=== PATIENT | female | born 1945 | race Caucasian/White ===

== ENCOUNTER 2024-10-27 14:18 | Inpatient (IN) | payer MEDICARE, OTHER ==
[2024-10-24 11:13] LABS: MEAN PLATELET VOLUME 7.9 FL (7.4-10.4); RED CELL DISTRIBUTION WIDTH 15.2 % (11.5-14.5)
[2024-10-24 11:26] LABS: APTT 23 SECONDS (22-32); INR 1.0 INR
[2024-10-24 11:28] LABS: CHOL/HDL RATIO 2.1 (0.00-4.99); CREATININE 1.14 MG/DL (0.40-0.90); LDL CHOLESTEROL 97 MG/DL (50-100); TOTAL CARBON DIOXIDE 26.5 MMOL/L (24-32); eGFR 46 ML/MIN
[~2024-10-27] VITALS: Ht 163.8 cm; Wt 49.1 kg
[2024-10-27] VITALS (12 sets, daily range): BP systolic 96–150; BP diastolic 46–78; PULSE 78–102; RESP 15–21; TEMP 97.7–98.5; O2SAT 15–96
[2024-10-27] MEDS ORDERED: LISI20TA28 PO (14:52)
[2024-10-27] MEDS ORDERED: BUDE3CAP11 PO (14:52)
[2024-10-27] MEDS ORDERED: CLOP75TA34 PO (14:52)
[2024-10-27] MEDS ORDERED: ATOR40TA72 PO (14:52)
[2024-10-27] MEDS ORDERED: ASPI-1265 PO (14:56)
--- NOTE | 2024-10-27 15:44 | ELECTROCARDIOGRAPH REPORT ---
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 PAULIE Osorio Measurements Intervals [place] Rate: 85 P: 73 NE: 201 QRS: 97 QRSD: 125 T: 37 QT: 384 QTc: 457 Interpretive Statements Sinus rhythm RBBB and LPFB Electronically Signed On 10-27-2024 18:47:[address] PAULIE Osorio Please click the below link to view image of tracing.
[2024-10-27] MEDS ORDERED: phenylephrine 10mg/ml inj. ONE (16:01)
[2024-10-27] MEDS ORDERED: heparin 1,000unit/ml 10ml vial 10 ML ONE (16:01)
[2024-10-27] MEDS ORDERED: atropine 0.1mg/ml 10ml syringe ONE (16:01)
[2024-10-27] MEDS ORDERED: LIDOcaine 1% 30ml preserv. free vial ONE (16:01)
[2024-10-27] MEDS ORDERED: DOPamine 400mg/D5W 250ml 250 ML IV ONE (16:02)
[2024-10-27] MEDS ORDERED: metoprolol tartrate 1mg/ml inj IV ONE (16:40)
[2024-10-27] MEDS ORDERED: hydrALAZINE 20mg/ml inj. ONE (17:03)
[2024-10-27] MEDS ORDERED: clopidogrel 300mg tablet ONE (17:15)
[2024-10-27] MEDS ORDERED: pseudoephedrine 30mg tablet PO PRN (17:45)
[2024-10-27] MEDS ORDERED: OXAZEpam 15mg capsule PO PRN (17:45)
[2024-10-27] MEDS ORDERED: HYDROcodone/acetaminophen 5mg/325mg tablet PO PRN (17:45)
[2024-10-27] MEDS ORDERED: hydrALAZINE 20mg/ml inj. IV PRN (17:50)
[2024-10-27] MEDS: ondansetron/PF 4mg/2ml inj ONE (19:19)
[2024-10-27] MEDS: DOPamine 400mg/D5W 250ml 250 ML IV SCH (20:00)
[2024-10-27] MEDS: HYDROcodone/acetaminophen 10/325mg tab PO PRN (21:41)
[2024-10-27] MEDS: ondansetron/PF 4mg/2ml inj IV PRN (21:41)
[2024-10-28 06:00] VITALS: BP 99/42; PULSE 103; RESP 16; TEMP 98.7; O2SAT 98
[2024-10-28] MEDS: budesonide 3mg SR capsule PO SCH (08:00)
[2024-10-28 10:08] VITALS: BP 114/46
--- NOTE | 2024-10-28 10:19 | DISCHARGE SUMMARY ---
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 She had history of carotid artery stenosis status post endarterectomy an ultrasound revealed residual severe 80-99% right ICA stenosis at the surgical site. Therefore, she was recommended for stenting procedure. Underwent placement of a right ICA stent with Dr. Renay Marte. Please see his dictation for further details on the procedure. Patient was monitored overnight in the telemetry unit. She has remained hemodynamically stable. Has been up and ambulatory. Denies neurologic symptoms. Expresses readiness to go home. Physical exam prior to discharge: General: Awake, alert, oriented. No apparent distress Neck: Supple. Normal range of motion. No JVD Respiratory: Lungs are clear to auscultation bilaterally. No respiratory distress. Chest: Normal shape and size. No accessory muscle use. Cardiovascular: Regular rate and rhythm. S1-S2. No murmur, gallop, rub. Gastrointestinal: Abdomen is soft. Nontender to palpation. Bowel sounds present. Extremities: No lower extremity edema, cyanosis or clubbing. Right femoral procedural site with dressing clean dry and intact. Minimal ecchymosis. No swelling or hematoma. Dorsalis pedis pulses palpable. Neuro: Cranial nerves II-XII grossly intact. Motor strength 5/5 in all four extremities.Sensation symmetric and intact to light touch throughout. Finger to nose intact, heel to nielsen intact, and rapid alternating hand movement intact. No pronator drift. No Deficits were appreciated. Psychiatric: Normal mood and affect. Skin: Normal color. Warm and dry. Plan: Patient is being discharged home in stable condition. She will follow up as scheduled. Her blood pressure was significantly elevated during the procedure and now on the low side. She will therefore hold her lisinopril for the next five days. *Problems/Diagnosis: (1) Carotid artery stenosis Total Time Spent on D/C: Up to 30 Minutes Counseling Services Smoking & Tobacco Cessation: N/A Supervising MD Co-signing Provider: Toño Marte Problem Qualifiers (1) Carotid artery stenosis: Qualified Codes: I65.21 - Occlusion and stenosis of right carotid artery KRISTEN VAZQUEZ BOWLING BALL FINISHER Oct 28, 2024 10:19
[2024-10-28 11:00] VITALS: BP 121/54; PULSE 96; RESP 18; TEMP 98.9; O2SAT 96
[2024-10-28 12:53] VITALS: RESP 16
--- NOTE | 2024-11-09 01:17 | CARDIOLOGY REPORT ---
DATE OF SERVICE: 10/27/2024 DICTATING PHYSICIAN: Janice Marte MD CARDIAC CATHETERIZATION REPORT DATE OF STUDY: 10/27/2024 PROCEDURES: * Aortic root angiography. * Selective right common and nonselective right external and internal carotid artery angiography. * Angioplasty of the right internal carotid artery. * Stenting x 1 of the right internal carotid artery. * Hemostasis to the right common femoral artery using the Perclose device. INDICATION: * High-grade stenosis. * High risk for carotid endarterectomy. PHYSICIAN: Janice Marte MD DESCRIPTION OF PROCEDURE: After informed consent was obtained, the patient was brought to the lab where she was prepped and draped in the usual sterile fashion. A 6-Sudanese sheath was inserted into the right femoral artery. Next, using a pigtail catheter, the catheter was advanced into the ascending aorta and aortic arch angiography performed. Thereafter, the 6-Sudanese sheath was exchanged for an 8-Sudanese sheath and a left internal mammary artery guiding catheter was used to engage the right common carotid artery. Selective angiography was then performed. HEMODYNAMICS: For the patient's hemodynamics, please refer to the event log. FINDINGS: The patient has a type 2 aortic arch with calcification of the arch and the great vessels. Mild disease of the common carotid artery is noted. The external carotid artery has moderate stenosis. The internal carotid artery has previous clips from an endarterectomy. A 90% stenosis of the proximal right internal carotid artery is noted. Percutaneous transluminal angioplasty/stenting: Using a 7.2 Emboshield, the Emboshield was carefully navigated across the lesion where it was deployed. Thereafter, using a 4 x 20 mm balloon, angioplasty of the right internal carotid artery was performed. Next, using an 8-8 x 30 XACT stent, the stent was advanced across the lesion where it was deployed. This was then postdilated with a 5 x 20 mm balloon. The Emboshield was then retrieved. Follow-up angiography revealed excellent angiographic results. IMPRESSION: Angioplasty/stenting of a 90% right internal carotid artery stenosis with an 8-8 x 30 XACT stent with excellent angiographic results. Janice Marte MD TID: [id number] RECEIPT: [id number] /[id number]
== END 2024-10-28 14:15 | disposition home or self-care (01) | DRG 36 ==
LOC: SSTAY O 14:18 → PCU 3S 19:56
PROVIDERS: ADMIT Student in an Organized Health Care Education/Training Program; ATTEND Student in an Organized Health Care Education/Training Program
PROC: 037K3DZ Dilation of Right Internal Carotid Artery with Intraluminal Device, Percutaneous Approach (ICD-10-PCS; principal; 2024-10-27)
PROC: B4101ZZ Fluoroscopy of Abdominal Aorta using Low Osmolar Contrast (ICD-10-PCS; 2024-10-27)
PROC: B3131ZZ Fluoroscopy of Right Common Carotid Artery using Low Osmolar Contrast (ICD-10-PCS; 2024-10-27)
PROC: B3191ZZ Fluoroscopy of Right External Carotid Artery using Low Osmolar Contrast (ICD-10-PCS; 2024-10-27)
DX: I65.21 Occlusion and stenosis of right carotid artery (principal); Z88.5 Allergy status to narcotic agent
CPT/HCPCS: 36415; 37215; 80048; 80061; 83695; 85025; 85610; 85730; 93005; A4615; A6258; A6449; C1725; C1760; C1769; C1876; C1884; C1887; C1894; G0378; J0360; J0461; J1265; J1644; J2003; J2371; J2405; J3490; J7030; Q9967